=== PATIENT | male | born 2000 | race Hispanic/Latino ===

== ENCOUNTER 2024-06-22 21:13 | Emergency (ER) | payer SELFPAY ==
[2024-06-22 21:16] VITALS: BP 143/77
[2024-06-22 21:30] LABS: % Basophils 0.2 % (0-2); % Eosinophils 0.7 % (0-6); % Immature Granulocytes 0.3 % (0-0.5); % Monocytes 4.5 % (1.7-9.3); % Neutrophils 73.3 % (42.2-75.2); Absolute Eosinophils 0.1 10^3/uL (0-0.7); Absolute Lymphocytes 2.2 10^3/uL (1.2-3.4); Absolute Monocytes 0.5 10^3/uL (0.1-0.6); Absolute Neutrophils 7.8 10^3/uL (1.4-6.5); Hematocrit 40.3 % (39.0-52.0); Hemoglobin 13.8 g/dL (13.0-18.0); Mean Corp Hgb Conc. 34.2 g/dL (33.0-37.0); Mean Corpuscular Hgb 28.2 pg (27.0-31.0); Mean Corpuscular Volume 82.2 fL (80.0-94.0); Mean Platelet Volume 10.6 fL (7.4-10.4); Nucleated Red Blood Cells % 0 % (-); Platelet Count 288 10^3/uL (130-400); Red Cell Dist. Width 13.1 % (11.5-14.5); White Blood Cell Count 10.6 10^3/uL (4.8-10.8)
[2024-06-22 21:48] LABS: ALT (SGPT) 48 U/L (0-50); AST (SGOT) 25 U/L (17-59); Albumin 5.2 g/dl (3.5-5.0); Alkaline Phosphatase 80 U/L (38-126); Blood Urea Nitrogen 16 mg/dl (9-20); Calcium 9.6 mg/dl (8.4-10.2); Carbon Dioxide 25 mmol/L (22-30); Chloride 106 mmol/L (98-107); Glucose 100 mg/dl (70-99); Sodium 142 mmol/L (135-145); Total Bilirubin 0.5 mg/dl (0.2-1.3); Total Protein 7.7 g/dl (6.3-8.2); eGFR > 60.00
[2024-06-22 21:49] LABS: Lipase 54 U/L (23-300)
--- NOTE | 2024-06-22 22:57 | ED.GENMED ---
History of Present Illness
<Nasreen Rios PA-C - Last Filed: 06/23/24 03:32>
General
Chief Complaint: Abdominal Pain
Source: patient
Exam Limitations: none
Time Seen by Provider: 06/22/24 22:56
Nursing documentation reviewed up to this point in time: agreed with
History of Present Illness
History of Present Illness:
24-year-old male no past medical history presents emergency department today with concerns of right upper quadrant abdominal pain starting upon awakening this morning. Patient reports that he woke up this morning, he felt discomfort in the side of
his abdomen he thought nothing of it went about his day when the pain started to get worse. The pain was intermittent and then he ate [place] food for lunch and noticed that the pain got a lot worse. Patient's family member is present in the room
who is translating for him. Family reports that patient often does not complain often and she states that there is movement that he was in tears. Patient denies any radiation of the pain to the back or into the chest. Patient denies any nausea or
vomiting. Patient is a decreased appetite. He denies any fevers or chills. He denies any sick contacts. He denies any history of intra-abdominal surgeries. He denies any diarrhea or constipation. Of note, he did have episode of burning with
urination 2 days ago which is since resolved. Denies any blood in the urine. Patient does feel that at times he notices the pain more when he takes a deep breath. Patient denies any heaviest doing recently or any trauma to the area. He denies
any shortness of breath. Patient states that currently he is pain-free and only noticed that with movement because he did take 3 Advil around 2 hours ago.
Past History
<Nasreen Rios PA-C - Last Filed: 06/23/24 03:32>
Past History
ED Past Medical History: None
ED Past Surgical History: None
Social History
Tobacco: Non-smoker
Alcohol: None
Drug: None
Review of Systems
<Nasreen Rios PA-C - Last Filed: 06/23/24 03:32>
Review of Systems
All Other Systems: ROS reviewed and negative except as documented in HPI and ROS
Phy Exam
<Nasreen Rios PA-C - Last Filed: 06/23/24 03:32>
Physical Exam
Physical Exam:
General: Patient is well appearing and in no acute distress; non-toxic
Skin: Warm and dry, no rashes or lesions
Head: Normocephalic, atraumatic
Eyes: Sclera non-icteric. EOMs intact.
Cardiac: Regular rate and rhythm, no murmurs, no tenderness to palpation of the external chest wall
Peripheral Vascular: No lower extremity swelling or edema
Pulm: Normal respiratory effort, no wheezes, rales, or rhonchi
Abdomen: No abdominal distention. No right-sided CVA tenderness. Mild right upper quadrant tenderness palpation, no rebound tenderness, no guarding.
Neuro: CN II-XII intact, no focal neurologic deficits.
Psychiatric: Appropriate mood and affect.
Scores
<Nasreen Rios PA-C - Last Filed: 06/23/24 03:32>
PERC Rule Criteria
Age <50 years: Yes
HR <100 bpm: Yes
Room air oxygen sat >94%: Yes
History of DVT or PE: No
Recent trauma or surgery: No
Hemoptysis: No
Exogenous estrogen: No
Clinical signs suggestive of DVT: No
: No
Considered low risk for PE: Yes
PERC Score: 0
PE can be excluded by PERC: Yes
<Maninder Adrian DO - Last Filed: 06/23/24 01:52>
PERC Rule Criteria
PERC Score: 0
PE can be excluded by PERC: Yes
Course
<Nasreen Rios PA-C - Last Filed: 06/23/24 03:32>
Orders/Labs/Results
Orders:
Orders
06/22/24 21:22
Complete Blood Count/With Diff Urgent
Comprehensive Metabolic Panel Urgent
Lipase Urgent
06/22/24 23:11
Cardiac Monitoring- Treatment ONCE
06/22/24 23:12
IV Insert/Care/Rem.- Treatment PRN
06/22/24 23:36
Urinalysis Reflex To Culture Urgent
Date Specimen was Collected: 06/22/24
Time Specimen was Collected: 23:30
Urine Microscopic Reflex Cult Urgent
Urine Culture Urgent
BRIDGET Source: U
Specimen Description:
Date Specimen was Collected: 06/22/24
Time Specimen was Collected: 23:30
06/23/24 00:00
US Abdomen Complete/Upper Urgent
Reason For Exam: right upper quadrant/epigastric pain
06/23/24 00:09
Add On - Microbiology Urgent
Tests Added?: urine GC/chlamydia
Abnormal Lab Results
06/22/24 06/22/24
21:22 23:36
MPV 10.6 H fL
(7.4-10.4)
Absolute Neuts (auto) 7.8 H 10^3/uL
(1.4-6.5)
Glucose 100 H mg/dl
(70-99)
Albumin 5.2 H g/dl
(3.5-5.0)
Leukocyte Esterase Rfl 2+ A
(Negative)
Urine RBC 3-6 A /HPF
(0-2)
Urine WBC (Reflex) 50-60 A /HPF
(0-5)
Urine Bacteria (Reflex) Moderate A
(Negative)
06/22/24 21:22
06/22/24 21:22
Vital Signs
Initial and Last Documented VS:
Initial Vital Signs
Temp Pulse Resp BP Pulse Ox
98.4 F 71 16 143/77 98
06/22/24 21:16 06/22/24 21:16 06/22/24 21:16 06/22/24 21:16 06/22/24 21:16
Last Documented Vital Signs
Temp Pulse Resp BP Pulse Ox
98.4 F 62 16 105/71 99
06/22/24 21:16 06/23/24 01:25 06/22/24 21:16 06/23/24 01:25 06/23/24 01:25
<Maninder Adrian, DO - Last Filed: 06/23/24 01:52>
Orders/Labs/Results
Orders:
Orders
06/22/24 21:22
Complete Blood Count/With Diff Urgent
Comprehensive Metabolic Panel Urgent
Lipase Urgent
06/22/24 23:11
Cardiac Monitoring- Treatment ONCE
06/22/24 23:12
IV Insert/Care/Rem.- Treatment PRN
06/22/24 23:36
Urinalysis Reflex To Culture Urgent
Date Specimen was Collected: 06/22/24
Time Specimen was Collected: 23:30
Urine Microscopic Reflex Cult Urgent
Urine Culture Urgent
BRIDGET Source: U
Specimen Description:
Date Specimen was Collected: 06/22/24
Time Specimen was Collected: 23:30
06/23/24 00:00
US Abdomen Complete/Upper Urgent
Reason For Exam: right upper quadrant/epigastric pain
06/23/24 00:09
Add On - Microbiology Urgent
Tests Added?: urine GC/chlamydia
Abnormal Lab Results
06/22/24 06/22/24
21:22 23:36
MPV 10.6 H fL
(7.4-10.4)
Absolute Neuts (auto) 7.8 H 10^3/uL
(1.4-6.5)
Glucose 100 H mg/dl
(70-99)
Albumin 5.2 H g/dl
(3.5-5.0)
Leukocyte Esterase Rfl 2+ A
(Negative)
Urine RBC 3-6 A /HPF
(0-2)
Urine WBC (Reflex) 50-60 A /HPF
(0-5)
Urine Bacteria (Reflex) Moderate A
(Negative)
06/22/24 21:22
06/22/24 21:22
Vital Signs
Initial and Last Documented VS:
Initial Vital Signs
Temp Pulse Resp BP Pulse Ox
98.4 F 71 16 143/77 98
06/22/24 21:16 06/22/24 21:16 06/22/24 21:16 06/22/24 21:16 06/22/24 21:16
Last Documented Vital Signs
Temp Pulse Resp BP Pulse Ox
98.4 F 62 16 105/71 99
06/22/24 21:16 06/23/24 01:25 06/22/24 21:16 06/23/24 01:25 06/23/24 01:25
[place];Nasreen Rios PA-C - Last Filed: 06/23/24 03:32>
MDM/Problems Addressed
Differential Diagnosis Includes:
Differentials include acute cholecystitis, biliary colic, gastritis, GERD, pancreatitis, muscle strain/sprain, urinary tract infection
MDM/Problems Addressed:
24-year-old male no past medical history presents emergency department today with concerns of right upper quadrant abdominal pain starting upon awakening this morning. Patient reports that he woke up this morning, he felt discomfort in the side of
his abdomen he thought nothing of it went about his day when the pain started to get worse. Upon arrival to the emergency department, patient states that his pain is very minimal. Physical exam he is well-appearing no acute distress he is afebrile
his vitals are stable. He is benign abdominal exam. CBC and CMP are unremarkable. His ultrasound does not show any evidence of cholecystitis, no evidence of hydronephrosis or any other abnormalities. On reassessment, patient is completely
pain-free. Note, patient did have an episode of dysuria 2 days ago so did obtain urinalysis. Patient's dysuria resolved with Azo. He denies any history of urologic problems or new sexual partners. Urinalysis does show signs concerning for
infection. Patient states he had 1 UTI in the past. Will start patient on antibiotics and encouraged follow-up with establishment of a primary care provider. Information given for an [facility] clinic. Patient stable for discharge.
Chronic conditions affecting care:
n/a
<Nasreen Rios PA-C - Last Filed: 06/23/24 03:32>
*Pulse Oximetry
Patient hypoxic: no
*Critical Care Note
Total Time (30-74mins, 75-104mins- exclusive of procedures): Not Applicable
Data Reviewed
Review of Other/Old Records Reveals: Records (Reviewed discharge summary from 05/27/2019Patient seen for bleeding laceration of the left forearm, was admitted because the laceration extended to the muscle layer of the tissue)
ED Attending Note
<ROCHELLE Hagen Last Filed: 06/23/24 03:32>
-
Portions of this chart may have been created with voice recognition software.� Occasional wrong word or��sound alike� substitutions may have occurred due to the inherent limitations of voice recognition software.
<Maninder Adrian DO - Last Filed: 06/23/24 01:52>
ED Attending Note
Patient seen and examined by attending physician: Yes
ED Attending Note:
24-year-old male presents to the emergency department with right-sided abdominal pain that began this morning. Pain waxed and waned throughout the day. Pain was present when he saw the PA, but resolved by the time I saw him. Patient has no
complaints at this time. Patient was seen in conjunction with the PA. I have reviewed and agree with the history and treatment plan presented. On my independent physical exam, patient is awake, alert, and oriented x3, no acute distress. No CVA
tenderness bilaterally. No suprapubic tenderness. No abdominal tenderness to deep or superficial palpation. Good bowel sounds x 4 quadrants.
Plan is to treat for UTI. Patient will follow-up with his family doctor for repeat urinalysis
Discharge Plan
Departure
Patient Disposition: Home (Routine Discharge)
Date of Disposition: 06/23/24
Time of Disposition: 01:55
Patient with high blood pressure during this ER visit?: Yes
Discharge Problem:
Right upper quadrant abdominal pain, Urinary tract infection
Prescriptions:
New
cefpodoxime 200 mg tablet
200 mg PO BID 7 Days Qty: 14 0RF
No Action
acetaminophen 325 MG tablet
650 mg PO Q4HPRN PRN (Reason: mild pain or temp >/= 100.4F) 0RF
aspirin 81 MG tablet,chewable
81 mg PO DAILY 0RF
oxycodone 5 MG tablet
5 mg PO Q4HPRN PRN (Reason: moderate pain) Qty: 5 0RF
Referrals:
NONE,* [Family Provider] -
Activity Restrictions/Additional Instructions:
Please follow up with your primary care provider in one week for reassessment and to ensure the resolution of your symptoms.
Cefpodoxime, an antibiotic, has been sent to your pharmacy. Please take one tablet twice daily for 7 days.
PLEASE RETURN EMERGENCY DEPARTMENT SHOULD YOU DEVELOP ACUTE WORSENING OF YOUR SYMPTOMS, FEVERS OR CHILLS, INTRACTABLE NAUSEA OR VOMITING, CHEST PAIN, SHORTNESS OF BREATH, OR ANY OTHER SIGNS OR SYMPTOMS WORRISOME TO YOU.
Interventions
Interventions:
*Risk Screen - Suicide Last Done: 06/22/24 21:16
*General Assessment Last Done: 06/22/24 21:16
*Neglect/Abuse Screening Last Done: 06/22/24 23:04
*ED- Fall Risk Assessment Last Done: 06/22/24 23:04
*ED COVID-19 Vaccine History Last Done: 06/22/24 23:04
*Nursing Disposition Last Done: 06/23/24 02:10
QM-Hmsxim-Lqdxjucpsy Assessment Last Done: 06/22/24 23:04
Discharge Date and Time
Discharge Date/Time: 06/23/24 02:11
Print Language: LITHUANIAN
[2024-06-22 23:11] VITALS: BP 138/68
[2024-06-22 23:42] LABS: Urine Albumin Negative (Neg - Trace); Urine Bilirubin Negative (Negative); Urine Character Clear (Clear); Urine Color Yellow; Urine Glucose Negative (Negative); Urine Ketone Negative (Negative); Urine Leukocyte 2+ (Negative); Urine Nitrite Negative (Negative); Urine Occult Blood Negative (Negative); Urine Urobilinogen Negative (Neg - 1+); Urine pH 6.5 (5.0-9.0)
[2024-06-23 00:05] LABS: Urine Bacteria Moderate (Negative); Urine White Cell 50-60 /HPF (0-5)
[2024-06-23 01:25] VITALS: BP 105/71
== END 2024-06-23 02:11 | disposition home or self-care (01) ==
LOC: EMR 21:13
PROVIDERS: Emergency Medicine; Physician Assistant; EMERGENCY PHYSICIAN Student in an Organized Health Care Education/Training Program
DX: N39.0 Urinary tract infection, site not specified (principal); R10.11 Right upper quadrant pain
CPT/HCPCS: 99284; 76700; 80053; 81003; 81015; 83690; 85025; 87086; 87491; 87591